=== PATIENT | male | born 1965 | race Caucasian/White ===

== ENCOUNTER 2023-07-25 16:14 | Emergency (ER) | payer BC, SELFPAY ==
[2023-07-25] VITALS (7 sets, daily range): BP systolic 117–154; BP diastolic 76–92; PULSE 75–91; RESP 11–26; TEMP 36.7–36.9; O2SAT 95–98; BMI 25.0
--- NOTE | 2023-07-25 16:17 | ECG_ITS ---
APPROVED REPORT Exam: Resting ECG HR:89 bpm ECG Measurements Heart Rate 89 AXES CO 157 P 63 QRSd 84 QRS -20 QT 364 T -78 QTc 411 Conclusion SINUS RHYTHM NONSPECIFIC ST & T-WAVE ABNORMALITY BORDERLINE ECG UNCONFIRMED REPORT Electronically signed by : Macario Mary MD 07/27/2023 18:43:53
--- NOTE | 2023-07-25 16:18 | XR_ITS ---
PROCEDURE INFORMATION: Exam: XR Chest Exam date and time: 07/25/2023 4:24 PM Age: 57 years old Clinical indication: Sternal or substernal pain; Prior surgery; Surgery date: 6+ months; Surgery type: Cardiac stents placed. ; Additional info: Cp TECHNIQUE: Imaging protocol: Radiologic exam of the chest. Views: 1 view. COMPARISON: No relevant prior studies available. FINDINGS: Lungs: No evidence of acute airspace consolidation. No pulmonary edema. Pleural spaces: No significant pleural effusion. No pneumothorax. Heart/Mediastinum: Cardiomediastinal silouhette is within normal limits. Bones/joints: No evidence of acute osseous abnormality. IMPRESSION: No acute findings.
--- NOTE | 2023-07-25 16:23 | [facility].EDGENADL ---
Discharge Plan Disposition Patient Disposition: Home, Self-Care Chief Complaint: Chest Pain Referrals Follow up/Referrals: Ernesto Garcia MD [Primary Care Provider] - See instructions Jose Pollock MD [Staff Physician] - See instructions Activity Restrictions/Add. Instructions Additional Instructions/Restrictions: Call your family doctor to establish care for this visit to the emergency department and schedule follow-up within 48 hours to ensure improvement. If you have any worsening of your condition or any other concerning signs or symptoms, return to the emergency department or your primary care doctor for further evaluation. Clinical Impressions Clinical Impression: Chest pain Qualifiers: Chest pain type: unspecified Qualified Code(s): R07.9 - Chest pain, unspecified Discharge ED Provider: Pawel Luong General Adult HPI General Chief complaint: Chest Pain Stated complaint: CP Time Seen by Provider: 07/25/23 16:19 History of Present Illness HPI narrative: 57-year-old male presenting with chest pain. Started yesterday, feels like pressure and radiates to his left shoulder. No nausea, vomiting, diaphoresis or shortness of breath. Has a history of an MO has [address] Currently taking aspirin. Does not follow-up with cardiology in years. Not currently having symptoms. Related Data Allergies Allergy/AdvReac Type Severity Reaction Status Date / Time metformin Allergy Verified 07/25/23 16:35 [facility] Disclaimer: The information contained in this section may have been updated after the patient was seen, as this information can be updated by other users. Social History Smoking Status: Current every day smoker alcohol intake: never current occupational status: employed Travel in the last 8 weeks: None ROS Obtained: Yes All systems reviewed & no additional complaints except as documented Physical Exam General General appearance: alert Head Head exam: atraumatic and normocephalic Eye Eye exam: Present normal appearance, PERRL and EOMI ENT ENT exam: Present mucous membranes moist Neck Neck exam: Present trachea midline Chest Chest inspection: Present normal inspection and symmetric chest wall rise Respiratory Respiratory exam: Present normal lung sounds bilaterally; Absent respiratory distress, wheezes, stridor, accessory muscle use or prolonged expiratory phase Cardiovascular Cardiovascular exam: Present normal rhythm Abdominal Exam Abdominal exam: Present soft; Absent distention, tenderness, guarding, rebound, rigidity or normal bowel sounds Extremities Exam Extremities exam: Absent edema Neurological Exam Neurological exam: Present alert, oriented X3 and CN II-XII intact Skin Skin exam: Present warm and dry; Absent cyanosis, diaphoresis or pallor Medical Decision Making Medical Records Medical records reviewed: Yes I reviewed the patient's medical records. Raul Inquiry Pt receiving controlled substance: No Raul was queried for this patient: No Vital Signs: 07/25/23 16:15 07/25/23 16:30 07/25/23 17:00 Temperature 98.5 F Temperature Source Oral Pulse Rate 91 H 81 Pulse Rate [Right] 90 Respiratory Rate 19 11 L 26 H Blood Pressure 148/92 H 120/80 Blood Pressure [Right Arm] 154/91 H Blood Pressure Mean 112 99 Blood Pressure Mean [Right Arm] 112 Blood Pressure Source [Right Arm] Automatic Cuff 02 Sat by Pulse Oximetry 98 98 96 Oxygen Delivery Method Room Air 07/25/23 17:30 07/25/23 18:00 07/25/23 18:30 Temperature Temperature Source Pulse Rate 78 77 76 Pulse Rate [Right] Respiratory Rate 16 18 18 Blood Pressure 121/81 117/79 128/76 Blood Pressure [Right Arm] Blood Pressure Mean 95 92 83 Blood Pressure Mean [Right Arm] Blood Pressure Source [Right Arm] 02 Sat by Pulse Oximetry 97 96 95 Oxygen Delivery Method Lab Data Lab Results 07/25/23 16:20: WBC 8.9, RBC 4.68, Hgb 15.5, Hct 45.0, MCV 96.0 H, MCH
[2023-07-25 16:28] LABS: Basophils % 0.2 % (0.1-2.0); Eosinophils # 0.3 K/mm3 (0.0-0.4); Eosinophils % 2.8 % (0.1-12.0); Hemoglobin 15.5 g/dL (14.1-18.0); Lymphocytes # 2.4 K/mm3 (0.7-4.5); Lymphocytes % 26.8 % (10-50); Mean Corpuscular HGB Conc 34.5 g/dL (31.8-35.4); Mean Corpuscular Hemoglobin 33.2 pg (27.0-31.2); Mean Platelet Volume 6.8 fl (7.4-10.4); Monocytes # 0.5 K/mm3 (0.1-1.0); Monocytes % 5.2 % (1.7-9.3); Neutrophils # 5.8 K/mm3 (1.8-7.8); Platelet Count 270 K/mm3 (142-424); Red Blood Count 4.68 M/mm3 (4.60-6.20); Red Cell Distribution Width 13.1 % (11.5-17.5); White Blood Count 8.9 K/mm3 (4.8-10.8)
[2023-07-25 16:43] LABS: Alanine Aminotransferase 18 U/L (12-78); Albumin Level 4.6 g/dl (3.5-5.0); Albumin/Globulin Ratio 1.4 (1.1-1.8); Alkaline Phosphatase 64 U/L (38-126); Anion Gap 9.2 mEq/L (5-15); Aspartate Amino Transferase 29 U/L (17-59); Bilirubin,Total 0.6 mg/dl (0.2-1.3); Blood Urea Nitrogen 13 mg/dl (9-20); Calcium 9.1 mg/dl (8.4-10.2); Carbon Dioxide 26 mmol/L (22.0-30.0); Chloride 104 mmol/L (98-107); Creatinine Clearance Estimated 123 mL/min (50-200); Estimated Glomerular Filt Rate 116 ml/min (>60); GFR (African American) 141 ML/MIN (>60); Globulin 3.4 g/dL (1.3-3.2); Glucose 233 mg/dl (74-100); Potassium 4.2 mmoL/L (3.5-5.1); Sodium 135 mmol/L (136-145)
[2023-07-25 16:56] LABS: Troponin I < 0.01 ng/ml (0.00-0.034)
[2023-07-25 20:16] LABS: Troponin I < 0.01 ng/ml (0.00-0.034)
== END 2023-07-25 20:22 | disposition home or self-care (01) ==
PROVIDERS: Emergency Provider Emergency Medicine; PCP Family Medicine
DX: R07.9 Chest pain, unspecified (principal); M25.512 Pain in left shoulder; I25.2 Old myocardial infarction; Z79.82 Long term (current) use of aspirin; F17.200 Nicotine dependence, unspecified, uncomplicated
CPT/HCPCS: 71045; 80053; 84484; 85025; 93005; 99285

== ENCOUNTER 2023-10-28 14:46 | Outpatient (CLI) | payer BC, SELFPAY ==
[2023-10-28 15:28] LABS: Hemoglobin A1C 9.2 % (4.0-6.0)
[2023-10-28 15:29] LABS: Chloride 103 mmol/L (98-107)
[2023-10-28 15:30] LABS: Sodium 138 mmol/L (136-145)
[2023-10-28 15:31] LABS: Creatinine,Urine Random 40 mg/dL (Not Estab.)
[2023-10-28 15:32] LABS: Alanine Aminotransferase 20 U/L (12-78); Alkaline Phosphatase 74 U/L (38-126); Aspartate Amino Transferase 29 U/L (17-59); Bilirubin,Total 0.3 mg/dl (0.2-1.3); Blood Urea Nitrogen 22 mg/dl (9-20); Carbon Dioxide 29 mmol/L (22.0-30.0); Estimated Glomerular Filt Rate 99 ml/min (>60); GFR (African American) 120 ML/MIN (>60)
[2023-10-28 15:33] LABS: Albumin Level 4.3 g/dl (3.5-5.0); Albumin/Globulin Ratio 1.7 (1.1-1.8); Calcium 9.6 mg/dl (8.4-10.2); Chol/HDL Ratio 3.4 (1-3.5); Cholesterol 194 mg/dl (140-200); Globulin 2.5 g/dL (1.3-3.2); Glucose 151 mg/dl (74-100); HDL Cholesterol 57 mg/dl (40-60); Total Protein,Serum 6.8 g/dl (6.3-8.2); Triglycerides 122 mg/dl (30-150); VLDL Cholesterol 24 mg/dL (0-40)
[2023-10-28 15:46] LABS: Direct LDL Cholesterol 93.24 mg/dL (100-129)
[2023-10-28 16:04] LABS: Prostate Specific Ag Screen 0.4 ng/ml (0.0-4.0); Thyroid Stimulating Hormone 1.29 uIU/mL (0.465-4.68)
== END 2023-10-28 23:59 ==
LOC: LAB 14:47
PROVIDERS: PCP Family Medicine; Visit Provider Family Medicine
DX: E11.9 Type 2 diabetes mellitus without complications (principal); E78.00 Pure hypercholesterolemia, unspecified; I10 Essential (primary) hypertension; Z12.5 Encounter for screening for malignant neoplasm of prostate
CPT/HCPCS: 36415; 80053; 80061; 82043; 82570; 83036; 84443; G0103